=== PATIENT | female | born 1945 | race Caucasian/White ===

== ENCOUNTER → 2018-09-14 | Outpatient (CLI) | payer OTHER | LOC: BHFA 14:00 | PROVIDERS: ATTEND Internal Medicine Interventional Cardiology | DX: I67.9 Cerebrovascular disease, unspecified (principal) ==

== ENCOUNTER → 2018-09-15 | Outpatient (CLI) | payer OTHER | LOC: BHFA 10:00 | PROVIDERS: ATTEND Internal Medicine Cardiovascular Disease | DX: I48.91 Unspecified atrial fibrillation (principal) ==

== ENCOUNTER → 2018-10-20 | Outpatient (CLI) | payer OTHER | LOC: BHFA 09:30 | PROVIDERS: ATTEND Internal Medicine Cardiovascular Disease | DX: R94.31 Abnormal electrocardiogram [ECG] [EKG] (principal) | CPT/HCPCS: 78452; 93017; A9500 ==

== ENCOUNTER → 2018-11-10 | Day surgery (SDC) | payer OTHER ==
[~2018-11-10] MED LIST: LIDOCAINE 1% 300 MG/30 ML SDV SC ONE
--- NOTE | 2018-11-10 10:08 | PDHPUP ---
History & Physical Update H&P update statement: This history and physical update is based on an assessment of the patient which was completed after admission or registration (within 24 hours), but prior to the surgery/procedure. H&P update: no change in patient's condition since H&P completed (risks and benefits of Loop Recorder implant discussed in detail. Pt agreeable to pusure. Consents signed )
--- NOTE | 2018-11-10 12:04 | CPIP ---
[f rep st] INVASIVE CARDIAC PROCEDURE DATE OF PROCEDURE: 11/10/2018 PROCEDURE PERFORMED: Medtronic implantable loop recorder. INDICATION FOR PROCEDURE: Isolated episode of atrial fibrillation in 2007. Patient would, otherwise , meet indication for anticoagulation; however, she has not any further episodes of atrial fibrillati on that have been detected. ZIO patch monitor was negative for atrial fibrillation. I have recommen ded implantable loop recorder for ongoing continuous cardiac monitoring for possible further episodes of atrial fibrillation. DESCRIPTION OF PROCEDURE: After informed consent was obtained for Medtronic implantable loop recorde r, patient was prepped and draped in a sterile fashion using 1% lidocaine. 4th intercostal space 2 c m from midline was anesthetized. Using a surgical tool provided in the kit, an incision was made in the skin. This was modified by a #15 blade scalpel. Tract under the skin was made with a Medtronic device. Device was injected under the skin. Hemostasis was achieved. Steri-Strips were applied. P atient tolerated the procedure well. There were no postoperative complications. At the time of procedure, patient is undergoing interrogation of her device. Patient will be scheduled for wound and device check next , November 18, 2018, at 3:00 p.m. Postoperative instructions of keeping the surgical site clean and dry over the next week until follow up visit have been discussed in detail. /[id number]/MODL
== END | disposition home or self-care (01) ==
LOC: FIMAGING 08:52
PROVIDERS: ATTEND Internal Medicine Cardiovascular Disease
PROC: 0JH602Z Insertion of Monitoring Device into Chest Subcutaneous Tissue and Fascia, Open Approach (ICD-10-PCS; principal; 2018-11-10)
DX: I48.91 Unspecified atrial fibrillation (principal); I77.9 Disorder of arteries and arterioles, unspecified; E78.5 Hyperlipidemia, unspecified
CPT/HCPCS: C1764